=== PATIENT | female | born 1995 | race Caucasian/White ===

== ENCOUNTER 2024-07-27 12:41 | Emergency (ER) | payer MEDICAID, SELFPAY ==
[2024-07-27 12:58] VITALS: BP 140/86; PULSE 93; RESP 18; TEMP 37.1; O2SAT 100; BMI 34.4
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
[2024-07-27] MEDS: KETOROLAC 10 MG TABLET PO (14:09)
== END 2024-07-27 14:52 | disposition home or self-care (01) ==
LOC: ED 14:31
PROVIDERS: Emergency Provider Emergency Medicine Emergency Medical Services
DX: M54.6 Pain in thoracic spine (principal)
CPT/HCPCS: 76604; 76705; 93308; 99284; A9270